=== PATIENT | female | born 1960 | race Caucasian/White ===

== ENCOUNTER 2019-05-24 09:12 | Outpatient (CLI) | payer BC ==
--- NOTE | 2019-05-24 13:01 | MRI ---
MRI ABDOMEN WITH AND WITHOUT CONTRAST: HISTORY: Mass of liver. FINDINGS: No pericardial effusion. No pleural effusion. A small fat-containing umbilical hernia. No lumbar spine compression deformity. The spleen is unremarkable. No pancreatic ductal dilatation. No intrahepatic or extrahepatic biliar y dilatation. No cholelithiasis is appreciated. Within hepatic segment 4A and 4B is a markedly T2 hyperintense mass with peripheral centripetal disco ntinuous enhancement measuring up to 3 cm. This continues to follow the blood pool up into 10 minute s. There is incompletely filling on the 10-minute delayed image. In hepatic segment 7 near the dome is a smaller mass with identical imaging characteristics measuring up to 1.5 cm, although it has more central enhancement on the 10-minute delayed image due to size an d less sclerosis. Aortic contour is nonaneurysmal. Cyst superior pole posterior cortex left kidney measures 6 mm. No hydronephrosis. No retroperitoneal or periaortic adenopathy. Pancreas is unremarkable. Portal vein is patent. The background liver contour is normal. No significant hepatic steatosis. The appendix is visualized and is normal. Terminal ileum is normal. IMPRESSION: Two separate benign hepatic hemangiomas. No suspicious abnormality in the liver. Recommend correlat ion with prior imaging as no prior images are available for review, only a patient's note about abnor mal liver imaging. POS: HOME
== END 2019-05-24 09:13 | disposition home or self-care (01) ==
LOC: BICMRI 09:12
PROVIDERS: ATTEND Internal Medicine
DX: K76.9 Liver disease, unspecified (principal); R10.13 Epigastric pain; R13.10 Dysphagia, unspecified; D18.03 Hemangioma of intra-abdominal structures
CPT/HCPCS: 36415; 74183; 82105; 82378; 82565; 86301

== ENCOUNTER 2019-08-06 08:40 | Outpatient (CLI) | payer BC ==
--- NOTE | 2019-08-06 10:12 | MRI ---
MRI OF LEFT SHOULDER PERFORMED WITHOUT CONTRAST ENHANCEMENT: HISTORY: Shoulder pain. Adhesive capsulitis. FINDINGS: There is moderate motion artifact which degrades detail on this examination. There is a full-thickne ss supraspinatus tendon tear. It is difficult to truly show the extent, although some of the fibers are retracted by as much as 15 mm. AP dimension of the tear is difficult to define, but probably of similar size. The infraspinatus tendon is intact. Subscapularis muscle and tendon are intact. I do not definitively visualize a biceps tendon and an i ntraarticular portion of the biceps is not identified. The superior labrum is difficult to assess due to motion but appears somewhat truncated. The inferio r glenohumeral ligamentous and labral complex is intact. IMPRESSION: 1, Limited examination due to motion artifact. 2. Full-thickness supraspinatus tendon tear as discussed above. No evidence of atrophy of the supra - or infraspinatus muscles. 3. Severe atrophy of the superior fibers of the subscapularis tendon. The fibers are think but appe ars intact. The intraarticular portion of the biceps tendon is not identified and I do not definitel y see a biceps tendon within the bicipital groove. POS: JUNE
== END 2019-08-06 08:41 | disposition home or self-care (01) ==
LOC: BICMRI 08:40
PROVIDERS: ATTEND Orthopaedic Surgery
DX: M75.02 Adhesive capsulitis of left shoulder (principal); M75.102 Unspecified rotator cuff tear or rupture of left shoulder, not specified as traumatic

== ENCOUNTER 2019-08-27 08:58 | Outpatient (CLI) | payer BC, OTHER ==
[2019-08-27 16:09] LABS: #Basophils 0.1 thou/uL (0.0-0.2); #Eosinphils 0.8 thou/uL (0.0-0.7); #Lymphocytes 2.9 thou/uL (1.20-3.40); #Monocytes 0.9 thou/uL (0.11-0.59); #Neutrophils 3.2 thou/uL (1.40-6.50); %Basophils 1.4 % (0.0-1.0); %Eosinophils 10.4 % (0.0-10.0); %Lymphocytes 36.1 % (21.0-51.0); %Monocytes 11.8 % (0.0-10.0); %Neutrophils 40.4 % (42.0-75.0); Hemoglobin 11.9 g/dL (12.0-16.0); Mean Corpuscular HGB CONC 32.9 g/dL (32.0-36.0); Mean Corpuscular Hemoglobin 30.7 pg (27.0-31.0); Mean Corpuscular Volume 93.3 fL (78.0-98.0); Mean Platelet Volume 8.2 fL (7.4-10.4); Platelet Count 366 thou/uL (130-400); RBC Distribution Width 11.5 % (11.5-14.5); Red Blood Cell (RBC) Count 3.86 mill/uL (4.20-5.40); White Blood Cell (WBC) Count 7.9 thou/uL (4.8-10.8)
[2019-08-27 16:23] LABS: Anion Gap 15 mmol/L (10-20); BUN (Urea Nitrogen) 13 mg/dL (9.8-20.1); Calc. Creatinine Clearance 0 mL/min (70-130); Carbon Dioxide 21 mmol/L (22-29); Chloride 108 mmol/L (98-107); Estimated GFR-MDRD 73; Glucose 102 mg/dL (70-105); Potassium 3.9 mmol/L (3.5-5.1); Sodium 140 mmol/L (136-145)
[2019-08-28 12:21] LABS: SARS-CoV-2 MS2 Positive; SARS-CoV-2 N Gene Negative; SARS-CoV-2 S Gene Negative; SARS-CoV-2 orf1ab Negative
== END 2019-08-27 08:59 | disposition home or self-care (01) ==
LOC: LABBT 08:58
PROVIDERS: ATTEND Orthopaedic Surgery
DX: Z01.818 Encounter for other preprocedural examination (principal); Z11.59 Encounter for screening for other viral diseases; M75.102 Unspecified rotator cuff tear or rupture of left shoulder, not specified as traumatic
CPT/HCPCS: 80048; 85025; 87635; 93005; 93010; U0003

== ENCOUNTER 2019-08-30 07:16 | Day surgery (SDC) | payer BC ==
[2019-08-24 13:58] VITALS: BMI 26.5
[2019-08-30] MEDS ORDERED: Fentanyl 100 MCG/2 ML VIAL ONE ×3 (08:04→11:37)
[2019-08-30] MEDS ORDERED: Midazolam HCl 2 mg/2 ml Vial ONE (08:04)
[2019-08-30] MEDS ORDERED: Atropine Sulfate 0.4 mg/1 ml Vial ONE (09:01)
[2019-08-30] MEDS ORDERED: Ondansetron PF 4 MG/2 ML Vial ONE (09:01)
[2019-08-30] MEDS ORDERED: PHENYLEPHRINE-NS 100 MCG/ML 10 ML SYRINGE ONE (09:01)
[2019-08-30] MEDS ORDERED: Rocuronium Bromide 10 MG/ML (10ML VIAL) ONE (09:01)
[2019-08-30] MEDS ORDERED: Ketorolac Tromethamine 30 MG/ML VIAL ONE (09:01)
[2019-08-30] MEDS ORDERED: Ropivacaine 0.5% HCl/PF (150 MG/30 ML VIAL) ONE (09:01)
[2019-08-30] MEDS ORDERED: Ropivacaine 0.2% HCl/PF (40 MG/20 ML VIAL) ONE (09:01)
[2019-08-30] MEDS ORDERED: PROPOFOL 200 MG/20 ML VIAL ONE (09:01)
[2019-08-30] MEDS ORDERED: Dexamethasone 20 MG/5 ML VIAL ONE (09:01)
[2019-08-30] MEDS ORDERED: Glycopyrrolate 0.2 MG/ML 5 ML SYRINGE ONE (09:01)
[2019-08-30] MEDS ORDERED: EPHEDRINE 25 MG/5 ML SYRINGE ONE (09:01)
[2019-08-30] MEDS ORDERED: HYDROcodone/Acetaminophen 10/325 mg Tablet PO PRN ×2 (10:28)
[2019-08-30] MEDS ORDERED: Zolpidem Tartrate 5 MG TAB PO PRN (10:28)
[2019-08-30] MEDS ORDERED: Ropivacaine 0.2% 550 ML 550 ML NERVE BLCK SCH (10:28)
[2019-08-30] MEDS ORDERED: traMADol HCl 50 MG TAB PO PRN ×2 (10:28)
[2019-08-30] MEDS ORDERED: Ondansetron PF 4 MG/2 ML Vial IVP PRN (10:28)
[2019-08-30] MEDS ORDERED: Promethazine HCl 25 MG/ML VIAL IM PRN (10:28)
[2019-08-30] MEDS ORDERED: Fentanyl 100 MCG/2 ML VIAL IV PRN (10:29)
[2019-08-30] MEDS ORDERED: Meperidine HCl/PF 25 MG/ML VIAL ONE (11:54)
[2019-08-30] MEDS ORDERED: Albuterol Sulfate 1.25 MG/3 ML NEB ONE (12:13)
--- NOTE | 2019-08-31 09:38 | OP ---
DATE OF PROCEDURE: 08/30/2019 PREOPERATIVE DIAGNOSES: 1. Rotator cuff tear, left shoulder. 2. Biceps tear. POSTOPERATIVE DIAGNOSES: 1. Rotator cuff tear, left shoulder. 2. Biceps tear. PROCEDURE PERFORMED: Left arthroscopic rotator cuff repair. ANESTHESIA: General. BLOOD LOSS: Minimal. SPECIMENS: None. DRAINS: None. COMPLICATIONS: None. DATA COMMUNICATIONS ANALYST: Chapito Plascencia PA-C. DESCRIPTION OF PROCEDURE: The patient was taken to the operating room where general anesthesia was induced. The patient was placed in right lateral decubitus position. Left arm was prepped and draped in a sterile fashion. A 15-pound traction was applied. Scope was placed in the glenohumeral joint. There was some tearing of the labrum, which I did not feel to be significant. There was no visible biceps tendon in the joint. It was a full-thickness rotator cuff tear. The scope was placed in the subacromial bursa. Anterior and inferior acromioplasty was performed. CA ligament was taken down. Hemostasis was obtained as needed. I freshened the greater tuberosity with a bur. I mobilized the rotator cuff. I placed 2 TWINFIX suture anchors medially and passed sutures through the rotator cuff and tied them down with good watertight repair. The ophthalmic surgical assistant was integral in management of the sutures during this portion of the procedure. The sutures were then divided and delivered for double-row type repair using self punching [place]. The ophthalmic surgical assistant passed the sutures and punched the [place] in the bone while I held the camera and the cannula. Shoulder was then drained. Portals were closed with nylon suture. Sterile dressings applied. Job ID: [id number]
== END 2019-08-30 14:50 | disposition home or self-care (01) ==
LOC: SDC 07:16
PROVIDERS: ATTEND Orthopaedic Surgery
PROC: 0RNK4ZZ Release Left Shoulder Joint, Percutaneous Endoscopic Approach (ICD-10-PCS; principal; 2019-08-30)
PROC: 0LQ24ZZ Repair Left Shoulder Tendon, Percutaneous Endoscopic Approach (ICD-10-PCS; principal; 2019-08-30)
PROC: 3E0T3BZ Introduction of Anesthetic Agent into Peripheral Nerves and Plexi, Percutaneous Approach (ICD-10-PCS; principal; 2019-08-30)
DX: M75.122 Complete rotator cuff tear or rupture of left shoulder, not specified as traumatic (principal); S43.492A Other sprain of left shoulder joint, initial encounter; S46.112A Strain of muscle, fascia and tendon of long head of biceps, left arm, initial encounter; G89.18 Other acute postprocedural pain; I10 Essential (primary) hypertension; J45.909 Unspecified asthma, uncomplicated; F32.9 Major depressive disorder, single episode, unspecified; F41.9 Anxiety disorder, unspecified; Z79.899 Other long term (current) drug therapy
CPT/HCPCS: A4306; C1713; J0690; J2175; J2250; J2795; J3010

== ENCOUNTER 2019-08-31 10:13 | Day surgery (SDC) | payer BC ==
[2019-08-31] MEDS ORDERED: Ropivacaine 0.2% HCl/PF (40 MG/20 ML VIAL) ONE (11:10)
[2019-08-31] MEDS ORDERED: Bupivacaine HCl 0.5%/Epinephrine 1:200,000/PF 30 ml Vial ONE (11:10)
[2019-08-31] MEDS ORDERED: Ropivacaine 0.5% HCl/PF (150 MG/30 ML VIAL) ONE (11:10)
== END 2019-08-31 11:32 | disposition home or self-care (01) ==
LOC: SDC 10:13
PROVIDERS: ATTEND Family Medicine
PROC: 3E0T3BZ Introduction of Anesthetic Agent into Peripheral Nerves and Plexi, Percutaneous Approach (ICD-10-PCS; principal; 2019-08-31)
DX: M75.122 Complete rotator cuff tear or rupture of left shoulder, not specified as traumatic (principal); S46.112A Strain of muscle, fascia and tendon of long head of biceps, left arm, initial encounter; S43.492A Other sprain of left shoulder joint, initial encounter
CPT/HCPCS: J0670; J2795

== ENCOUNTER 2021-02-03 11:34 | Emergency (ER) | payer BC ==
[2021-02-03 12:13] LABS: Hemoglobin 12.6 g/dL (12.0-16.0); Mean Corpuscular Volume 93.6 fL (78.0-98.0); Mean Platelet Volume 7.1 fL (7.4-10.4); Platelet Count 411 thou/uL (130-400); RBC Distribution Width 12.1 % (11.5-14.5); Red Blood Cell (RBC) Count 4.22 mill/uL (4.20-5.40); White Blood Cell (WBC) Count 8.5 thou/uL (4.8-10.8)
[2021-02-03 12:30] LABS: Band 2 % (5-11); Eosinophils 24 % (0-10); Lymphocytes 24 % (21-51); MDiff Complete? YES; Monocytes 12 % (0-10); Neutrophil 38 % (42-75); Platelet Morphology Comment Appears Increased; RBC Morphology Normal
[2021-02-03 12:35] LABS: ALT (SGPT) 22 U/L (8-55); AST (SGOT) 21 U/L (5-34); Albumin 3.9 g/dL (3.5-5.0); Alkaline Phosphatase 73 U/L (40-110); Anion Gap 11 mmol/L (10-20); BUN (Urea Nitrogen) 17 mg/dL (9.8-20.1); Bilirubin, Total 0.2 mg/dL (0.2-1.2); Calc. Creatinine Clearance 0 mL/min (70-130); Calcium 9.3 mg/dL (7.8-10.44); Carbon Dioxide 23 mmol/L (22-29); Chloride 108 mmol/L (98-107); Globulin 3.3 g/dL (2.4-3.5); Glucose 106 mg/dL (70-105); Potassium 3.9 mmol/L (3.5-5.1); Protein, Total 7.2 g/dL (6.0-8.3)
[2021-02-03 12:48] LABS: Sodium 138 mmol/L (136-145)
[2021-02-03] MEDS ORDERED: Acetaminophen 500 MG TAB ONE (14:49)
[2021-02-03] MEDS ORDERED: Ketorolac Tromethamine 30 MG/ML VIAL ONE (14:49)
== END 2021-02-03 16:25 | disposition home or self-care (01) ==
LOC: ERS 11:34
DX: M79.661 Pain in right lower leg (principal); M54.30 Sciatica, unspecified side; I10 Essential (primary) hypertension; J45.909 Unspecified asthma, uncomplicated; M19.90 Unspecified osteoarthritis, unspecified site
CPT/HCPCS: 36415; 80053; 85025; 96372; J1885